=== PATIENT | female | born 1985 | race Asian ===

== ENCOUNTER 2019-06-18 23:00 | Inpatient (IN) | payer OTHER ==
[~2019-06-18] VITALS: Ht 162.6 cm; Wt 69.1 kg
[~2019-06-18 23:00] MED LIST: CALC600T24 PO; DOCU-144 PO; FERR134T PO; IBUP-1542 PO; PREN-19 PO
[2019-06-18 23:26] VITALS: BP 113/68; PULSE 74; RESP 16
[2019-06-19] MEDS ORDERED: LACTATED RINGER'S 1,000 ML IV PRN (00:06)
[2019-06-19] MEDS ORDERED: OXYTOCIN 30 UNITS/LR 500 ML IV PRN (00:30)
[2019-06-19] MEDS ORDERED: MISOPROSTOL 200 MCG TAB PR PRN (00:30)
[2019-06-19] MEDS ORDERED: MINERAL OIL LIGHT 10 ML VIAL TOP PRN (00:30)
[2019-06-19] MEDS ORDERED: BUTORPHANOL 2 MG INJ IV PRN ×2 (00:30)
[2019-06-19] MEDS ORDERED: IBUPROFEN 600 MG TAB PO PRN (00:30)
[2019-06-19] MEDS ORDERED: METHYLERGONOVINE 0.2 MG INJ IM PRN (00:30)
[2019-06-19] MEDS ORDERED: LIDOCAINE 1% (MPF) 30 ML INJ INJ PRN (00:30)
[2019-06-19] MEDS ORDERED: OXYTOCIN 30 UNITS/LR 500 ML IV SCH ×3 (00:30→08:30)
[2019-06-19] MEDS ORDERED: CARBOPROST 250 MCG INJ IM PRN (00:30)
[2019-06-19] MEDS: LACTATED RINGER'S 1,000 ML IV SCH ×3 (01:25→16:02)
[2019-06-19] MEDS: GENTAMICIN IN NACL, ISO-OSM 50 ML IVPB SCH (19:20)
[2019-06-19] MEDS: AMPICILLIN 2 GM/NS (PMX) 100 ML IV SCH (21:05)
[2019-06-20] MEDS: LACTATED RINGER'S 1,000 ML IV SCH ×2 (00:24→04:36)
[2019-06-20] MEDS: AMPICILLIN 2 GM/NS (PMX) 100 ML IV SCH ×3 (00:59→09:00)
[2019-06-20] MEDS ORDERED: FENTAnyl 2MCG/ML-ROPIV 0.2% 100 ML ONE (02:16)
[2019-06-20] MEDS ORDERED: FENTAnyl 2MCG/ML-ROPIV 0.2% 100 ML BAG EPI SCH (02:30)
[2019-06-20] MEDS ORDERED: DIPHENHYDRAMINE 50 MG INJ IV PRN ×2 (02:30→07:30)
[2019-06-20] MEDS ORDERED: ONDANSETRON 4 MG INJ IV PRN ×2 (02:30→07:30)
[2019-06-20] MEDS ORDERED: TRIMETHOBENZAMIDE 100 MG/ML VIAL IM PRN (02:30)
[2019-06-20] MEDS ORDERED: NALOXONE (0.4 MG/ML) INJ IV PRN (02:30)
[2019-06-20] MEDS: GENTAMICIN IN NACL, ISO-OSM 50 ML IVPB SCH ×2 (03:37→12:04)
[2019-06-20] MEDS: LACTATED RINGER'S 1,000 ML IV* SCH ×3 (07:15→23:15)
[2019-06-20] MEDS ORDERED: NA PHOSPHATE/BIPHOS 133 ML ENEMA PR PRN (07:30)
[2019-06-20] MEDS ORDERED: DIPHENHYDRAMINE 25 MG CAP PO PRN (07:30)
[2019-06-20] MEDS ORDERED: OXYTOCIN 30 UNITS/LR 500 ML IV PRN (07:30)
[2019-06-20] MEDS ORDERED: BENZOCAINE 20% 56 ML SPRAY TOP PRN (07:30)
[2019-06-20] MEDS ORDERED: MISOPROSTOL 200 MCG TAB PR PRN (07:30)
[2019-06-20] MEDS ORDERED: LANOLIN HPA 1 PKT TOP PRN (07:30)
[2019-06-20] MEDS ORDERED: SENNA/DOCUSATE NA (8.6MG/50MG) TAB PO PRN (07:30)
[2019-06-20] MEDS ORDERED: WITCH HAZEL/GLYCERIN PAD PR PRN (07:30)
[2019-06-20] MEDS ORDERED: MAGNESIUM HYDROXIDE 30ML CUP PO PRN (07:30)
[2019-06-20] MEDS ORDERED: CARBOPROST 250 MCG INJ IM PRN (07:30)
[2019-06-20] MEDS ORDERED: HYDROCODONE/APAP (5/325) TAB PO PRN ×2 (07:30)
[2019-06-20] MEDS ORDERED: ONDANSETRON 4 MG TAB PO PRN (07:30)
[2019-06-20] MEDS ORDERED: DIBUCAINE 1% 30 GM OINT TOP PRN (07:30)
[2019-06-20] MEDS: SENNA/DOCUSATE NA (8.6MG/50MG) TAB PO SCH ×2 (09:00→20:42)
[2019-06-20 10:40] VITALS: BP 123/78; RESP 18
[2019-06-20] MEDS: IBUPROFEN 600 MG TAB PO SCH ×2 (12:04→18:10)
[2019-06-20 12:30] VITALS: BP 132/80; PULSE 75; RESP 20
[2019-06-20 16:30] VITALS: BP 117/56; PULSE 62; RESP 18
[2019-06-20 19:50] VITALS: BP 119/73; PULSE 73; RESP 20
[2019-06-21] VITALS: BP 133/71; PULSE 69; RESP 19
[2019-06-21] MEDS: IBUPROFEN 600 MG TAB PO SCH ×5 (01:12→23:33)
[2019-06-21 04:00] VITALS: BP 111/53; PULSE 65; RESP 17
[2019-06-21] MEDS: LACTATED RINGER'S 1,000 ML IV* SCH (07:15)
[2019-06-21 08:00] VITALS: BP 127/78; PULSE 66; RESP 16
[2019-06-21] MEDS: SENNA/DOCUSATE NA (8.6MG/50MG) TAB PO SCH ×2 (09:00→21:00)
[2019-06-21 15:40] VITALS: BP 121/77; PULSE 66; RESP 16
[2019-06-21 21:00] VITALS: BP 136/64; PULSE 57; RESP 18
[2019-06-22 04:00] VITALS: BP 122/65; PULSE 65; RESP 17
[2019-06-22] MEDS: IBUPROFEN 600 MG TAB PO SCH ×2 (06:10→12:30)
[2019-06-22 08:00] VITALS: BP 107/64; PULSE 54; RESP 18
[2019-06-22] MEDS ORDERED: DIPHTH/TET/ACEL PERTUSS (ADULT) 0.5 ML VIAL IM* ONE (09:00)
[2019-06-22] MEDS ORDERED: VARICELLA VACCINE LIVE/PF 1,350 UNIT/0.5 ML ML SC* ONE (09:00)
[2019-06-22] MEDS ORDERED: MEASLES,MUMPS,RUBELLA VACCINE INJ SC* ONE (09:00)
[2019-06-22] MEDS: SENNA/DOCUSATE NA (8.6MG/50MG) TAB PO SCH (09:00)
[2019-06-22 16:00] VITALS: BP 108/56; PULSE 70; RESP 18
== END 2019-06-22 18:15 | disposition home or self-care (01) | DRG 807 ==
LOC: L-D 23:00 → OBT 23:00 → L-D 06-19 → PP1 06-20 10:35
PROVIDERS: ADMIT Specialist; ATTEND Specialist
PROC: 10E0XZZ Delivery of Products of Conception, External Approach (ICD-10-PCS; principal; 2019-06-20)
DX: O80 Encounter for full-term uncomplicated delivery (principal); Z37.0 Single live birth; Z3A.38 38 weeks gestation of pregnancy
CPT/HCPCS: 62322; 76815; 80307; 85025; 85610; 85730; 86592; 86850; 86900; 86901; 87340; 90716; G0463; J0290; J1580; J2590; J3010; J7120